=== PATIENT | male | born 1980 | race Caucasian/White ===

== ENCOUNTER 2017-09-07 19:40 | Emergency (ER) | payer OTHER ==
[2017-09-07 20:11] VITALS: O2SAT 96
--- NOTE | 2017-09-07 21:14 | ED.PDOC ---
History of Present Illness - General Chief Complaint: Abdominal Pain Stated Complaint: sharp abd pain Time Seen by Provider: 09/07/17 19:46 Source: patient Exam Limitations: no limitations - History of Present Illness Initial Comments: The patient patient's a 37-year-old male presenting to the emergency room secondary to pain in the right lower quadrant today sometimes with radiation down to the tip of his penis into his rectum. No fevers. No dysuria. He has had some mild frequency. No constipation or diarrhea. No history of any kidney stones. No flank pain. No kidney failure problems. No bleeding problems. No trauma. Timing/Duration: unsure Severity: moderate Improving Factors: nothing Worsening Factors: nothing Associated Symptoms: denies symptoms Allergies/Adverse Reactions: Allergies NO KNOWN ALLERGY Allergy (Verified 09/07/17 20:11) Review of Systems - Review of Systems Constitutional: States: no symptoms reported EENTM: States: no symptoms reported Respiratory: States: no symptoms reported Cardiology: States: no symptoms reported Gastrointestinal/Abdominal: States: abdominal pain Genitourinary: States: no symptoms reported Musculoskeletal: States: no symptoms reported Skin: States: no symptoms reported Neurological: States: no symptoms reported Endocrine: States: no symptoms reported All other Systems: No Change from Baseline Past Medical History (General) - Patient Medical History Hx Asthma: No Hx Hypertension: No Hx Diabetes: No Hx Gastroesophageal Reflux: No MRSA Source:: Wound Surgical History: other - Vaccination History Hx Tetanus, Diphtheria Vaccination: No Hx Influenza Vaccination: No - Social History Hx Tobacco Use: No Hx Alcohol Use: No Family Medical History - Family History Father Grandparents Hx Family Cancer: Yes - Colon Physical Exam - Physical Exam General Appearance: Alert, Comfortable, No apparent distress Eye Exam: bilateral normal Ears, Nose, Throat: normal ENT inspection, normal pharynx Neck: full range of motion, supple Respiratory: lungs clear, normal breath sounds, no respiratory distress, no accessory muscle use Cardiovascular/Chest: normal peripheral pulses, no edema Peripheral Pulses: radial,right: 2+, radial,left: 2+ Gastrointestinal/Abdominal: non tender, soft Rectal Exam: deferred Back Exam: normal inspection, no CVA tenderness, no vertebral tenderness Extremity: normal range of motion, non-tender, normal inspection, no pedal edema , normal capillary refill 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 He needs to hydrate and use ibuprofen as necessary. If he is still having discomfort a week out from now then a reevaluation with his primary care doctor may be warranted. No evidence of infection at this time. ER warnings were given for any significant worsening. - Results/Orders Results/Orders: Laboratory Tests 09/07/17 20:26 Urine Color Yellow Urine Appearance Clear Urine pH 5.5 Ur Specific [place] >= 1.030 Urine Protein Negative Urine Glucose (UA) Negative Urine Ketones Negative Urine Blood Moderate H Urine Nitrite Negative Urine Bilirubin Negative Urine Urobilinogen 0.2 Ur Leukocyte Esterase Negative Urine RBC 10-20 H Urine WBC 0-1 Ur Epithelial Cells 0 Urine Bacteria Rare Departure - Departure Clinical Impression: Ureterolithiasis Disposition: Discharge to Home or Self Care Condition: Fair Departure Forms: ED Discharge - Pt. Copy, Patient Portal Self Enrollment Instructions: DI for Kidney Stones Diet: regular diet Activity: increase activity as tolerated Additional Instructions: the patient is a 37-year-old male presenting to the emergency room secondary to right lower quadrant pain that is most likely due to a passing kidney stone. He needs to hydrate and use ibuprofen as necessary. If he is still having discomfort a week out from now then a reevaluation with his primary care doctor may be warranted. No evidence of infection at this time. ER warnings were given for any significant worsening.
[2017-09-07 21:23] VITALS: BP 119/72; TEMP 97
== END 2017-09-07 21:23 | disposition home or self-care (01) ==
LOC: ER 19:40
DX: N20.1 Calculus of ureter (principal)

== ENCOUNTER → 2018-02-04 | Outpatient (CLI) | payer OTHER | LOC: LAB.O 12:31 | PROVIDERS: ATTEND Nurse Practitioner Family | DX: R21 Rash and other nonspecific skin eruption (principal) ==

== ENCOUNTER → 2018-12-30 | Outpatient (CLI) | payer OTHER ==
--- NOTE | 2018-12-30 10:13 | RAD ---
EXAM DESCRIPTION: Lumbar Spine 3 Views CLINICAL HISTORY: 38 years Male LOW BACK PAIN COMPARISON: None TECHNIQUE: AP and lateral views of the lumbar spine as well as a coned down lateral view of the lumbosacral junction are obtained. FINDINGS: OSSEOUS: There are no discernible acute fractures or osteolytic/blastic lesions. There are postoperative changes of posterior lumbar decompression and fusion (PLDF) from L4-S1 with transpediculate stabilization and placement of disc spacers as well as bone graft material . Orthopedic hardware is intact There is no evidence of dislocation or subluxation. Vertebral body heights are maintained. Other spaces are maintained. The alignment is normal The visualized SI joints are preserved and sacral foraminal lines are intact. SOFT TISSUES The paraspinous and presacral soft tissues are unremarkable. IMPRESSION: Status post posterior lumbar decompression and fusion from L4-S1. Electronically signed by: Linda Ash MD 12/30/2018 10:11 AM CDT
== END ==
LOC: RAD 09:18
PROVIDERS: ATTEND Nurse Practitioner Family
DX: M54.5 Low back pain (principal); Z98.1 Arthrodesis status